=== PATIENT | female | born 1995 | race Caucasian/White ===

== ENCOUNTER 2019-08-09 08:52 | Emergency (ER) | payer OTHER ==
[~2019-08-09] VITALS: Ht 175.3 cm; Wt 59.9 kg
[2019-08-09 09:10] VITALS: Ht 175.3 cm; Wt 59.9 kg
[2019-08-09 10:54] LABS: BASOPHIL % 0.2 % (0-2); CALCIUM 9.5 mg/dL (8.5-10.1); CARBON DIOXIDE 24.1 mmol/L (21-32); CHLORIDE SERUM 102 mmol/L (98-107); CREATININE SERUM 0.4 mg/dL (0.6-1.0); GFR1 > 60 mL/min; GLUCOSE SERUM 93 mg/dL (74-106); PLATELET COUNT 214 x10^3mcL (130-400); POTASSIUM SERUM 4.3 mmol/L (3.5-5.1); SODIUM SERUM 139 mmol/L (136-145)
[2019-08-09 10:55] LABS: RED CELL DISTRIBUTION WIDTH 14.7 % (11.5-14.5)
[2019-08-09 10:59] LABS: ALBUMIN 4.2 g/dL (3.4-5.0); ALKALINE PHOSPHATASE 60 U/L (46-116); ALT/SGPT 15 U/L (14-59); AST/SGOT 6 U/L (15-37); BILIRUBIN TOTAL 0.74 mg/dL (0.20-1.00); LIPASE 54 IU/L (73-393)
[2019-08-09 11:00] LABS: TOTAL PROTEIN, SERUM 8.3 g/dL (6.4-8.2)
[2019-08-09 12:03] VITALS: BP 117/70
== END 2019-08-09 12:03 | disposition home or self-care (01) ==
LOC: ED 08:52
PROVIDERS: Emergency Medicine
DX: O21.0 Mild hyperemesis gravidarum (principal); Z3A.01 Less than 8 weeks gestation of pregnancy
CPT/HCPCS: J2405; J7030